=== PATIENT | female | born 1960 | race Asian ===

== ENCOUNTER → 2019-04-06 10:08 | Outpatient (CLI) | payer MEDICARE, BC, SELFPAY ==
--- NOTE | 2019-04-06 10:13 | DI.MG.S_ITS ---
BILATERAL DIGITAL SCREENING MAMMOGRAM 3D/2D WITH CAD: 04/06/2019 CLINICAL: Routine screening. Comparison is made to exams dated: 10/03/2017 mammogram - [facility] and 08/29/2013 mammogram - [facility]. The tissue of both breasts is heterogeneously dense. This may lower the sensitivity of mammography. Current study was also evaluated with a Computer Aided Detection (CAD) system. No significant masses, calcifications, or other findings are seen in either breast. There has been no significant interval change. IMPRESSION: NEGATIVE There is no mammographic evidence of malignancy. A 1 year screening mammogram is recommended. This exam was interpreted at Station ID: [id number]. NOTE: For mammograms, a report in lay terms will be sent to the patient. Approximately 15% of breast malignancies will not be visualized mammographically. In the management of a palpable breast mass, a negative mammogram must not discourage biopsy of a clinically suspicious lesion. Electronically Signed By: Donovan arshad/lucille:04/08/2019 07:37:22 letter sent: Normal Exam ACR BI-RADS Category 1: Negative [id number]
== END ==
PROVIDERS: PCP Hospitalist; Visit Provider Hospitalist
DX: Z12.31 Encounter for screening mammogram for malignant neoplasm of breast (principal)
CPT/HCPCS: 77063; 77067

== ENCOUNTER → 2020-01-08 08:56 | Outpatient (CLI) | payer MEDICARE, BC, SELFPAY ==
[2020-01-08 09:33] LABS: Add Manual Diff / Slide Review NO; Basophils Absolute Auto 100 /uL (0-100); Basophils Percent Auto 1.3 % (0-2); Eosinophils Absolute Auto 300 /uL (0-450); Eosinophils Percent Auto 4.3 % (2-4); Lymphocytes Absolute Auto 1800 /uL (1100-4500); Lymphocytes Percent Auto 28.7 % (25-40); Mean Corpuscular HGB Conc 33.4 % (30-36); Mean Corpuscular Hemoglobin 30.1 PG (26-34); Mean Corpuscular Volume 90.1 fL (80-100); Monocytes Absolute Auto 400 /uL (0-900); Monocytes Percent Auto 6.8 % (3-14); Neutrophils Absolute Auto 3600 /uL (1500-7000); Neutrophils Percent Auto 58.9 % (50-75); Platelet Count 125 X10^3/uL (150-400); Red Blood Cell Count 4.66 X10^6/uL (4.0-5.2); Red Cell Distribution Width 13.2 % (11.6-14.8); White Blood Cell Count 6.1 X10^3/uL (4.5-11.0)
[2020-01-08 09:54] LABS: Albumin 4.4 g/dL (3.5-5.0); Albumin Globulin Ratio 1.8 (1.0-2.8); Alkaline Phosphatase 76 U/L (38-126); Aspartate Aminotransferase 29 IU/L (14-36); BUN Creatinine Ratio 11.4 (6-22); Bilirubin Total 0.6 mg/dL (0.2-1.3); Blood Urea Nitrogen 14 mg/dL (7-17); Calcium 9.5 mg/dL (8.4-10.2); Carbon Dioxide 26 mmol/L (22-32); Chloride 105 mmol/L (98-107); Cholesterol 122 mg/dL (140-199); Estimated Glomerular Filt Rate 44.4 mL/min (>60); Globulin 2.4 g/dL (1.7-4.1); Glucose 98 mg/dL (80-110); HDL Cholesterol 49 mg/dL (40-60); HEMOLYSIS < 15 (0-50); LDL Cholesterol Calculated 47 mg/dL (<100); Potassium 4.3 mmol/L (3.4-5.1); Sodium 139 mmol/L (137-145); Total Protein 6.8 g/dL (6.3-8.2); Triglycerides 132 mg/dL (35-150)
[2020-01-08 10:07] LABS: Vitamin D 25 Hydroxy (D3) 120 ng/mL (30.0-100.0)
[2020-01-08 10:10] LABS: Free T3, Triiodothyronine Free 5.35 pg/mL (2.77-5.27); Free T4, Direct Thyroxine 1.19 ng/dL (0.78-2.19)
[2020-01-08 10:23] LABS: Thyroid Stimulating Hormone 0.051 uIU/mL (0.47-4.68)
[2020-01-08 10:44] LABS: Vitamin B12 909 pg/mL (239-931)
[2020-01-08 14:24] LABS: Alanine Aminotransferase 16 IU/L (<35)
== END ==
PROVIDERS: PCP Family Medicine; Referring Provider Family Medicine; Visit Provider Family Medicine
DX: E55.9 Vitamin D deficiency, unspecified (principal); G62.9 Polyneuropathy, unspecified; Z13.29 Encounter for screening for other suspected endocrine disorder; Z85.43 Personal history of malignant neoplasm of ovary; Z85.79 Personal history of other malignant neoplasms of lymphoid, hematopoietic and related tissues
CPT/HCPCS: 36415; 80053; 80061; 82306; 82607; 84439; 84443; 84481; 85025

== ENCOUNTER → 2020-01-10 08:02 | Outpatient (CLI) | payer MEDICARE, BC, SELFPAY ==
--- NOTE | 2020-01-10 08:04 | DI.CT.S_ITS ---
PROCEDURE: CT SOFT TISSUE NECK W CON INDICATIONS: h/o lymphoma and h/o C5,[address] at [facility] TECHNIQUE: After the administration of intravenous contrast, 3.0 mm axial sections acquired from the sella to the aortic arch. Additional oblique axial 3.0 mm sections acquired through the pharynx. 3 mm thick coronal and sagittal reformats were generated. For radiation dose reduction, the following was used: automated exposure control. COMPARISON: [facility], CT, CT CHEST ABD PEL W CON, 01/10/2020, 8:49. (No prior outside studies are available for review at the time of this dictation). FINDINGS: Image quality: There is artifact associated with the metallic hardware. Lymph nodes: No enlarged lymph nodes seen throughout the neck. Vessels: Visualized vasculature appears patent. Neck spaces: The oropharynx, nasopharynx, and pharynx demonstrate no mucosal lesions. The vocal cords, false vocal cords, pyriform sinuses, epiglottis, vallecula, and tongue base all appear normal. Extramucosal spaces appear unremarkable. Glands: The parotid and submandibular glands appear normal. Thyroid gland demonstrates no significant abnormality. Miscellaneous: Visualized brain and orbits appear normal. Lung apices appear clear. Superficial soft tissues appear normal. Bones: No suspicious bony lesions. Visualized sinuses and mastoids appear unremarkable. Relatively prominent cervical spine degenerative changes are seen, which are worst inferiorly. IMPRESSION: No enlarged lymph nodes are seen. Dictated by: Mason Pineda M.D. on 01/10/2020 at 15:18 Approved by: Mason Pineda M.D. on 01/10/2020 at 15:20
--- NOTE | 2020-01-10 08:04 | DI.CT.S_ITS ---
PROCEDURE: CT CHEST ABD PEL W CON INDICATIONS: history of lymphoma now with pain in multiple areas TECHNIQUE: After the administration of oral and intravenous contrast, 5 mm thick sections acquired from the lung apices to the symphysis. 5 mm coronal and sagittal reformats were performed, with additional 7 mm coronal MIP reformats through the lungs. For radiation dose reduction, the following was used: automated exposure control, adjustment of mA and/or kV according to patient size. COMPARISON: [facility], CT, CT SOFT TISSUE NECK W CON, 01/10/2020, 8:49. FINDINGS: Image quality: Excellent. CHEST: Lungs and pleura: No acute airspace opacities. No pleural effusions or pneumothorax. Central and peripheral airways appear patent and normal in caliber. Mediastinum: Heart size is normal. No pericardial effusion. No mediastinal or hilar adenopathy by size criteria. Thoracic aorta and central pulmonary arteries are normal in size. Esophagus is normal in caliber. No hiatal hernia. Chest wall: No axillary or supraclavicular adenopathy by size criteria. Thyroid gland is unremarkable. ABDOMEN: Solid organs: Liver is normal in size and enhancement. Gallbladder is unremarkable . Biliary system is non dilated. Pancreas enhances normally. Spleen is normal in size and enhancement. No adrenal nodules. Kidneys demonstrate normal size and enhancement, without hydronephrosis. Peritoneum and bowel: Bowel loops demonstrate normal wall thickness and caliber. No free fluid or air. Nodes and vessels: No retroperitoneal or mesenteric adenopathy by size criteria. Aorta and inferior vena cava are normal in size. Miscellaneous: No ventral hernias. PELVIS: Genitourinary: Bladder wall thickness is normal. Miscellaneous: No inguinal hernias or adenopathy. Remote hysterectomy. Bones: No suspicious bony lesions. No vertebral body compression fractures. IMPRESSION: No evidence of lymphadenopathy in the chest, abdomen, and pelvis. No evidence of acute process in the chest, abdomen, and pelvis. Dictated by: Alcon Galeana M.D. on 01/10/2020 at 16:29 Approved by: Alcon Galeana M.D. on 01/10/2020 at 16:33
== END ==
PROVIDERS: PCP Family Medicine; Referring Provider Internal Medicine; Visit Provider Internal Medicine
DX: Z08 Encounter for follow-up examination after completed treatment for malignant neoplasm (principal); Z85.72 Personal history of non-Hodgkin lymphomas; Z85.43 Personal history of malignant neoplasm of ovary; R52 Pain, unspecified
CPT/HCPCS: 70491; 71260; 74177; Q9967

== ENCOUNTER → 2020-01-21 14:00 | Oncology outpatient (ONC) | payer MEDICARE, BC, SELFPAY ==
[2020-01-07 13:59] VITALS: BP 128/75; PULSE 65; RESP 18; TEMP 36.7; O2SAT 100
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
[2020-01-21 14:13] VITALS: BP 124/73; PULSE 58; RESP 16; TEMP 36.9; O2SAT 99
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
== END ==
PROVIDERS: PCP Family Medicine; Referring Provider Family Medicine; Visit Provider Internal Medicine
DX: Z08 Encounter for follow-up examination after completed treatment for malignant neoplasm (principal); Z85.72 Personal history of non-Hodgkin lymphomas; D69.6 Thrombocytopenia, unspecified; G62.0 Drug-induced polyneuropathy; T45.1X5S Adverse effect of antineoplastic and immunosuppressive drugs, sequela; M47.812 Spondylosis without myelopathy or radiculopathy, cervical region; R94.6 Abnormal results of thyroid function studies
CPT/HCPCS: 99204; 99214

== ENCOUNTER → 2020-03-03 11:33 | Outpatient (CLI) | payer MEDICARE, BC, SELFPAY ==
[2020-03-03 13:01] LABS: Free T3, Triiodothyronine Free 4.15 pg/mL (2.77-5.27); Free T4, Direct Thyroxine 1.08 ng/dL (0.78-2.19)
[2020-03-03 13:15] LABS: Thyroid Stimulating Hormone 1.14 uIU/mL (0.47-4.68)
[2020-03-03 18:23] LABS: Vitamin D 25 Hydroxy (D3) 99.3 ng/mL (30.0-100.0)
== END ==
PROVIDERS: PCP Family Medicine; Referring Provider Nurse Practitioner Family; Visit Provider Nurse Practitioner Family
DX: E05.90 Thyrotoxicosis, unspecified without thyrotoxic crisis or storm (principal); E55.9 Vitamin D deficiency, unspecified; T45.2X1A Poisoning by vitamins, accidental (unintentional), initial encounter
CPT/HCPCS: 36415; 82306; 84439; 84443; 84445; 84481

== ENCOUNTER → 2021-01-01 11:28 | Outpatient (CLI) | payer MEDICARE, BC, SELFPAY ==
--- NOTE | 2021-01-01 | DI.RAD.S_ITS ---
PROCEDURE: XR LUMBAR SPINE 2-3V INDICATIONS: Segmental and somatic dysfunction of lumbar region TECHNIQUE: 3 views of the lumbar spine were acquired. COMPARISON: None. FINDINGS: Bones: 5 [id number] vertebrae are present. There is normal bony alignment. No vertebral body compression fractures. No suspicious bony lesions. Degenerative disc disease is minimal except at L5-S1 where it is moderately severe. Facet osteoarthritis also appears moderately severe at L5-S1 and to a lesser degree at L4-L5. Soft tissues: Overlying bowel gas pattern is normal. No suspicious soft tissue calcifications. IMPRESSION: No trauma found. Moderately severe degenerative disc disease and facet osteoarthritis at L5-S1 but elsewhere the study appears only minimally degenerated. Dictated by: Brady Adams M.D. on 01/01/2021 at 13:59 Approved by: Brady Adams M.D. on 01/01/2021 at 14:00
--- NOTE | 2021-01-01 | DI.RAD.S_ITS ---
PROCEDURE: XR CERVICAL SPINE 2V OR 3V INDICATIONS: Segmental and somatic dysfunction of lumbar region TECHNIQUE: 2 view(s) of the cervical spine were acquired. COMPARISON: None. FINDINGS: Bones: No fractures or dislocations to the T1 level. The lateral masses of C1 appear intact on the odontoid view. No suspicious bony lesions. Note is made of degenerative disc disease that is moderate in severity at C3-4 through C 6-7. No subluxation is associated. No trauma found. Soft tissues: No prevertebral soft tissue swelling. IMPRESSION: The C2-3 level of the cervical spine shows no degenerative change but from C3-4 inferiorly through C6-C7 there is a moderate degree of degenerative disc disease and likely facet osteoarthritis to the degree that spinal and foraminal stenosis through the middle and lower thirds of the cervical spine likely is present. Dictated by: Brady Adams M.D. on 01/01/2021 at 14:00 Approved by: Brady Adams M.D. on 01/01/2021 at 14:03
--- NOTE | 2021-01-01 | DI.RAD.S_ITS ---
PROCEDURE: XR THORACIC SPINE 2V INDICATIONS: Segmental and somatic dysfunction of lumbar region TECHNIQUE: 2 views of the thoracic spine were acquired. COMPARISON: None. FINDINGS: Bones: No fractures or dislocations. No suspicious bony lesions. 12 pairs of ribs are noted, and appear intact where visualized. Soft tissues: No paravertebral stripe thickening. IMPRESSION: Normal for age, source of current some attic dysfunction symptoms is not seen. Dictated by: Brady Adams M.D. on 01/01/2021 at 13:58 Approved by: Brady Adams M.D. on 01/01/2021 at 13:59
== END ==
PROVIDERS: PCP Family Medicine; Referring Provider Chiropractor; Visit Provider Chiropractor
DX: M99.01 Segmental and somatic dysfunction of cervical region (principal); M99.02 Segmental and somatic dysfunction of thoracic region; M99.03 Segmental and somatic dysfunction of lumbar region; M99.04 Segmental and somatic dysfunction of sacral region; M50.31 Other cervical disc degeneration, high cervical region; M51.37 Other intervertebral disc degeneration, lumbosacral region; M47.817 Spondylosis without myelopathy or radiculopathy, lumbosacral region
CPT/HCPCS: 72050; 72072; 72100

== ENCOUNTER → 2021-06-03 14:56 | Outpatient (CLI) | payer MEDICARE, BC, SELFPAY ==
--- NOTE | 2021-06-03 14:58 | DI.RAD.S_ITS ---
PROCEDURE: XR FINGER LT MIN 2V INDICATIONS: finger caught in door TECHNIQUE: AP hand, 2 views of the 2nd finger(s) acquired. COMPARISON: None. FINDINGS: Bones: No fractures or dislocations. No suspicious bony lesions. Osteoarthritic changes are noted in 2nd CMC joint and 2nd PIP joint. No definite bony erosion. Nonspecific subcortical cyst formation involving ulnar aspect of 2nd proximal phalangeal head is seen. Moderate 1st CMC joint osteoarthritis is also seen. Soft tissues: No suspicious soft tissue calcifications. IMPRESSION: No gross acute 2nd finger fracture or dislocation. Mild 2nd digit osteoarthritis with nonspecific subcortical cyst formation involving ulnar aspect of 2nd proximal phalangeal head. Dictated by: Karan Cabrera M.D. on 06/03/2021 at 15:21 Approved by: Karan Cabrera M.D. on 06/03/2021 at 15:22
== END ==
PROVIDERS: PCP Family Medicine; Referring Provider Registered Nurse Diabetes Educator; Visit Provider Registered Nurse Diabetes Educator
DX: M19.042 Primary osteoarthritis, left hand (principal); M79.89 Other specified soft tissue disorders
CPT/HCPCS: 73140

== ENCOUNTER 2021-11-10 17:52 | Emergency (ER) | payer MEDICARE, BC, SELFPAY ==
[2021-11-10 18:01] VITALS: BP 143/77; PULSE 60; RESP 14; TEMP 36.6; O2SAT 99; BMI 28.3
--- NOTE | 2021-11-10 18:17 | ED.FALL ---
HPI - Fall General Chief Complaint: Fall Stated Complaint: rt arm, rt side of face injury s/p fall Time Seen by Provider: 11/10/21 18:13 Source: patient Mode of arrival: Ambulatory History of Present Illness HPI Narrative: The patient had a fall at her home about 2 hours prior to arrival here. She was stepping out of her house with 2 dogs on [address]. The 2 dogs saw a squirrel and bolted forward pulling her from the deck, she landed on the pavement of her driveway, striking her right face and right upper extremity she has a right facial abrasion, right facial pain, and diplopia. She has nausea but no emesis. She did not experience LOC. she has no bleeding from the nose, mouth or ears. She denies neck pain. She has no back pain. She has no chest pain, cough or dyspnea. She has no abdominal discomfort. She has an abrasion along her right lateral elbow, but has full range of motion of the right shoulder, elbow and right wrist. She has contusion/abrasion at the base of right thumb. She has significant discomfort, but no obvious deformity or restriction of range of motion. There are no open wounds. She also has a small abrasion on left hand, but no discomfort. She has no hip or lower extremity injuries. She is oriented. She is ambulatory without difficulty. Her tetanus was updated after arrival. She denies recent illness. She has no fever chills. She has no confusion, speech changes, or focal numbness or weakness. Related Data Home Medications Medication Instructions Recorded Confirmed vit C 250 mg-vit E 90 mg-zinc 40 1 tab PO DAILY cap 03/12/19 11/10/21 mg-copper 1 [id number] capsule (PreserVision AREDS-2) vitamin B complex (B 1 tab PO DAILY 03/12/19 11/10/21 Complex-Vitamin B12) Previous Rx's Medication Instructions Recorded amlodipine 5 mg tablet See Rx Instructions .ROUTE 06/23/21 .COMPLEX #90 tab gabapentin 300 mg capsule See Rx Instructions .ROUTE 06/23/21 .COMPLEX #210 cap sertraline 100 mg tablet See Rx Instructions .ROUTE 06/23/21 .COMPLEX #180 tab metoclopramide HCl 10 mg tablet See Rx Instructions .ROUTE 06/29/21 .COMPLEX #360 tab esomeprazole magnesium 40 mg See Rx Instructions .ROUTE 07/20/21 capsule,delayed release .COMPLEX #180 cap montelukast 10 mg tablet See Rx Instructions .ROUTE 08/02/21 .COMPLEX #90 tab simvastatin 20 mg tablet See Rx Instructions .ROUTE 08/02/21 .COMPLEX #90 tab ondansetron 4 mg disintegrating 4 mg PO Q4H PRN #14 tab 11/10/21 tablet Allergies Allergy/AdvReac Type Severity Reaction Status Date / Time vancomycin Allergy Severe Anaphylaxis Verified 11/10/21 18:06 Penicillins Allergy rash/breathing Verified 06/23/21 09:15 issues Review of Systems Review of Systems ROS Unobtainable: All systems reviewed & are unremarkable except as noted in HPI and below Patient History Medical History Acute pain of left shoulder due to trauma Barretts esophagus History of lymphoma History of ovarian cancer in adulthood Hyperthyroidism determined by thyroid function test Injury of left index finger Lymphoma Peripheral neuropathy Plantar fasciitis of left foot Upper extremity somatic dysfunction Vitamin D deficiency Vitamin D toxicity Surgical History S/P hysterectomy (~1998) S/P rotator cuff repair Family History Sister Cancer CAD (coronary artery disease) Social History Smoking Status: Never smoker Smoking Status: Never smoker alcohol intake frequency: 0-2 drinks per day Substance Use Type: does not use Exam Initial Vital Signs Initial Vital Signs: Vital Signs Temperature 97.9 F 11/10/21 18:01 Pulse Rate 60 11/10/21 18:01 Respiratory Rate 14 11/10/21 18:01 Blood Pressure 143/77 H 11/10/21 18:01 Pulse Oximetry 99 11/10/21 18:01 Const General: cooperative and comfortable Orientation: Orientation (Normal) [facility] Head: other (Small right facial abrasions. No active bleeding or foreign body.) Ears: TM's normal bilaterally Nose: external nose normal and nares normal Mouth: oral mucosae normal and lip normal Teeth and gingiva: dentition normal Throat: posterior oropharynx normal Eyes General: Yes appearance normal, both eyes and all related structures Periorbital: periorbital findings normal Pupils: PERRL EOM: EOM intact bilaterally Neck Neck: full ROM and No tender Chest Chest: normal inspection of the chest (No palpable tenderness.) Resp Auscultation: clear to auscultation bilaterally Cardio Rate: regular rate Rhythm: regular rhythm Heart Sounds: S1 normal, S2 normal, no click and no murmurs GI Inspection: normal to inspection Palpation: soft and No tender Auscultation: normal bowel sounds Back/Spine/Pelvis Back: normal to inspection and No back tenderness Skin Other: Right facial, right forearm and left hand abrasions. Multiple small contusions. Neuro General: patient alert, patient awake, patient oriented x3 and no focal motor deficits Extrem Other: Right arm shows full range of motion of the right shoulder, right elbow and right wrist. There is an abrasion over the right lateral elbow. There are no deep injuries, no foreign bodies. Right wrist shows normal range of motion, no snuffbox tenderness. There is contusion and tenderness to the right thenar eminence. There are no palpable abnormalities in the digits, with normal range of motion the digits. 1 cm abrasion to the left dorsal hand. Full range of motion left hand. Tends in both upper extremities are intact. Both hands are neurovascular intact. Lower extremities show no hip, knee or ankle tenderness. There is no injuries to lower extremities. Psych Mental Status: mental status grossly normal Course Course Course Narrative: The radiology studies were discussed with the patient. Right arm injuries were dressed by the patient's nurse prior to discharge. Orders Ordered: Discontinued Medications Acetaminophen (Acetaminophen 325 Mg Tablet) 650 mg PO NOW ONE Stop: 11/10/21 19:36 Last Admin: 11/10/21 19:40 Dose: 650 mg Documented by: DEX Meclizine HCl (Meclizine Hcl 12.5 Mg Tablet) 50 mg PO NOW ONE Stop: 11/10/21 18:26 Last Admin: 11/10/21 18:48 Dose: 50 mg Documented by: DEX Ondansetron HCl (Ondansetron 4 Mg Odt) 4 mg SL NOW ONE Stop: 11/10/21 18:26 Last Admin: 11/10/21 18:44 Dose: 4 mg Documented by: DEX Vital Signs Vital signs: Vital Signs - 8 hr 11/10/21 18:01 11/10/21 19:29 Temperature 97.9 F Pulse Rate 60 56 L Respiratory Rate 14 16 Blood Pressure 143/77 H 127/77 Pulse Oximetry 99 99 MDM - Fall Imaging Data Right hand: Radiologist's Impression: 1. No acute abnormality. 2. Degenerative changes consistent with osteoarthritis. 3. Marginal erosions in multiple joints suggestive of inflammatory arthropathy.? ? Right elbow x-ray: Radiologist's Impression: No acute bony injury CT scan - head: Radiologist's Impression: No intracranial hemorrhage or mass effect. Chronic left sphenoid mucosal sinus disease ? Discharge Plan Departure Patient Disposition: Home Clinical Impression: Head injury, acute, without loss of consciousness, Abrasion of forearm, right, Contusion of hand Instructions: Concussion Activity Restrictions/Additional Instructions: The double vision, the nausea,... This is consistent with a mild concussion. Your head scan is okay Tylenol or Advil as needed for pain. Zofran as needed for nausea. Rest at home. Avoid TVs, computer screens, that kind of neurologic feedback. I suggested reading books, and light exercise. For your right arm, Tylenol every 4 hours as needed. Apply ice packs to your right hand frequently. Symptoms should resolve within about a month. Follow-up with your doctor if symptoms persist. Return here as needed. Prescriptions: New ondansetron 4 mg tablet,disintegrating 4 mg PO Q4H PRN (Reason: nausea and vomiting) Qty: 14 0RF No Action metoclopramide HCl 10 mg tablet See Rx Instructions .ROUTE .COMPLEX Qty: 360 0RF Dose Instruction: take 1 tablet by mouth twice a day Rx Instructions: take 1 tablet by mouth twice a day esomeprazole magnesium 40 mg capsule,delayed release(DR/EC) See Rx Instructions .ROUTE .COMPLEX Qty: 180 0RF Dose Instruction: take 1 capsule by mouth twice a day Rx Instructions: take 1 capsule by mouth twice a day simvastatin 20 mg tablet See Rx Instructions .ROUTE .COMPLEX Qty: 90 3RF Dose Instruction: take 1 tablet by mouth at bedtime Rx Instructions: take 1 tablet by mouth at bedtime montelukast 10 mg tablet See Rx Instructions .ROUTE .COMPLEX Qty: 90 3RF Dose Instruction: take 1 tablet by mouth at bedtime Rx Instructions: take 1 tablet by mouth at bedtime gabapentin 300 mg capsule See Rx Instructions .ROUTE .COMPLEX Qty: 210 3RF Dose Instruction: Take 2 tabs in the morning, 2 tabs in the afternoon, and 3 tabs at night. Rx Instructions: Take 2 tabs in the morning, 2 tabs in the afternoon, and 3 tabs at night. sertraline 100 mg tablet See Rx Instructions .ROUTE .COMPLEX Qty: 180 3RF Dose Instruction: take 1 tablet by mouth twice a day Rx Instructions: take 1 tablet by mouth twice a day amlodipine 5 mg tablet See Rx Instructions .ROUTE .COMPLEX Qty: 90 3RF Dose Instruction: take 1 tablet by mouth once daily Rx Instructions: take 1 tablet by mouth once daily PreserVision AREDS-2 [id number] li-lstp-gb-mg capsule 1 tab PO DAILY 0RF vitamin B complex [B Complex-Vitamin B12] tablet 1 tab PO DAILY 0RF Referrals: Tigre Pettit DO [Primary Care Provider] -
--- NOTE | 2021-11-10 18:18 | DI.RAD.S_ITS ---
PROCEDURE: XR ELBOW RT MIN 3V INDICATIONS: trip and fall TECHNIQUE: 3 views of the elbow were acquired. COMPARISON: None. FINDINGS: Bones: No fractures or dislocations. No suspicious bony lesions. Soft tissues: No elbow joint effusion. No suspicious soft tissue calcifications. IMPRESSION: No acute abnormality of the right elbow. Dictated by: Jaiden Linn M.D. on 11/10/2021 at 19:17 Approved by: Jaiden Linn M.D. on 11/10/2021 at 19:18
--- NOTE | 2021-11-10 18:26 | DI.CT.S_ITS ---
PROCEDURE: CT HEAD/BRAIN WO CON INDICATIONS: Head injury. Diplopia and dizziness. TECHNIQUE: Noncontrast 4.5 mm thick angled axial sections acquired from the foramen magnum to the vertex, with coronal and sagittal reformats. For radiation dose reduction, the following was used: automated exposure control, adjustment of mA and/or kV according to patient size. COMPARISON: None. FINDINGS: Image quality: Excellent. CSF spaces: Basal cisterns are patent. No extra-axial fluid collections. Ventricles are normal in size and shape. Brain: No midline shift. No intracranial masses or hemorrhage. Green-white matter interface is normal. Skull and face: Calvarium and visualized facial bones are intact, without suspicious lesions. Sinuses: Mucosal thickening and debris in the left sphenoid sinus associated with sphenoid wall thickening IMPRESSION: No intracranial hemorrhage or mass effect. Chronic left sphenoid mucosal sinus disease Approved by: Jason Kwon M.D. on 11/10/2021 at 18:14
--- NOTE | 2021-11-10 18:26 | DI.RAD.S_ITS ---
PROCEDURE: XR HAND RT MIN 3V INDICATIONS: Fall TECHNIQUE: 3 views of the hand(s) acquired. COMPARISON: None. FINDINGS: Bones: No fractures or dislocations. Carpal bones are normally aligned. No suspicious bony lesions. There are marginal erosions in the 4th proximal phalanx distally at the PIP joint, the distal metacarpal, and the 5th metacarpal head. The 1st carpometacarpal joint has degenerative changes consistent with osteoarthritis. Soft tissues: No suspicious soft tissue calcifications. IMPRESSION: 1. No acute abnormality. 2. Degenerative changes consistent with osteoarthritis. 3. Marginal erosions in multiple joints suggestive of inflammatory arthropathy. Dictated by: Jaiden Linn M.D. on 11/10/2021 at 19:18 Approved by: Jaiden Linn M.D. on 11/10/2021 at 19:20
[2021-11-10] MEDS: ONDANSETRON 4 MG ODT SL (18:44)
[2021-11-10] MEDS: MECLIZINE HCL 12.5 MG TABLET 50 MG PO (18:48)
--- NOTE | 2021-11-10 19:26 | PC.NURSE ---
Pt reports no longer being dizzy. Pt asks for something for her headache. Notified MD Luis.
[2021-11-10 19:29] VITALS: BP 127/77; PULSE 56; RESP 16; O2SAT 99
[2021-11-10] MEDS: ACETAMINOPHEN 325 MG TABLET 650 MG PO (19:40)
== END 2021-11-10 20:23 | disposition home or self-care (01) ==
PROVIDERS: Emergency Provider Emergency Medicine; PCP Family Medicine
DX: S09.90XA Unspecified injury of head, initial encounter (principal); S50.311A Abrasion of right elbow, initial encounter; S60.221A Contusion of right hand, initial encounter; W17.89XA Other fall from one level to another, initial encounter
CPT/HCPCS: 70450; 73080; 73130; 99283; 99284

== ENCOUNTER → 2022-04-15 13:45 | Outpatient (CLI) | payer MEDICARE, BC, SELFPAY ==
[2022-04-15 14:32] LABS: Add Manual Diff / Slide Review NO; Basophils Absolute Auto 100 /uL (0-100); Basophils Percent Auto 1.3 % (0-2); Eosinophils Absolute Auto 200 /uL (0-450); Eosinophils Percent Auto 2.7 % (2-4); Hematocrit 41.9 % (36-46); Lymphocytes Absolute Auto 1800 /uL (1100-4500); Mean Corpuscular HGB Conc 33.5 % (30-36); Mean Corpuscular Hemoglobin 29.6 PG (26-34); Mean Corpuscular Volume 88.5 fL (80-100); Monocytes Absolute Auto 300 /uL (0-900); Monocytes Percent Auto 6.2 % (3-14); Neutrophils Absolute Auto 3200 /uL (1500-7000); Neutrophils Percent Auto 57.8 % (50-75); Platelet Count 144 X10^3/uL (150-400); Red Blood Cell Count 4.74 X10^6/uL (4.0-5.2); Red Cell Distribution Width 13.2 % (11.6-14.8); White Blood Cell Count 5.6 X10^3/uL (4.5-11.0)
[2022-04-15 14:34] LABS: Alanine Aminotransferase 15 IU/L (<35); Albumin Globulin Ratio 1.5 (1.0-2.8); Alkaline Phosphatase 75 U/L (38-126); Aspartate Aminotransferase 25 IU/L (14-36); BUN Creatinine Ratio 12.5 (6-22); Bilirubin Total 0.5 mg/dL (0.2-1.3); Blood Urea Nitrogen 16 mg/dL (7-17); Calcium 8.6 mg/dL (8.4-10.2); Carbon Dioxide 24 mmol/L (22-32); Chloride 106 mmol/L (98-107); Cholesterol 190 mg/dL (140-199); Estimated Glomerular Filt Rate 47 mL/min (>60); Globulin 2.6 g/dL (1.7-4.1); Glucose 110 mg/dL (80-110); HDL Cholesterol 52 mg/dL (40-60); HEMOLYSIS < 15 (0-50); LDL Cholesterol Calculated 87 mg/dL (<100); Potassium 4.1 mmol/L (3.4-5.1); Sodium 139 mmol/L (137-145); Total Protein 6.6 g/dL (6.3-8.2); Triglycerides 256 mg/dL (35-150)
[2022-04-15 14:54] LABS: Hemoglobin A1C% w Est Avg Glu 5.1 % (4.0-6.0)
[2022-04-15 14:54] LABS: Free T3, Triiodothyronine Free 5.38 pg/mL (2.77-5.27)
[2022-04-15 15:08] LABS: Thyroid Stimulating Hormone 1.13 uIU/mL (0.47-4.68)
[2022-04-15 15:32] LABS: Vitamin D 25 Hydroxy (D3) 68.7 ng/mL (30.0-100.0)
== END ==
PROVIDERS: PCP Family Medicine; Referring Provider Family Medicine; Visit Provider Family Medicine
DX: Z00.00 Encounter for general adult medical examination without abnormal findings (principal); T45.2X1A Poisoning by vitamins, accidental (unintentional), initial encounter; E55.9 Vitamin D deficiency, unspecified; G90.3 Multi-system degeneration of the autonomic nervous system; I95.1 Orthostatic hypotension; Z85.79 Personal history of other malignant neoplasms of lymphoid, hematopoietic and related tissues
CPT/HCPCS: 36415; 80053; 80061; 82306; 83036; 84439; 84443; 84481; 85025

== ENCOUNTER → 2022-05-04 13:56 | Outpatient (CLI) | payer MEDICARE, BC, SELFPAY ==
--- NOTE | 2022-05-04 13:58 | DI.MG.S_ITS ---
BILATERAL DIGITAL SCREENING MAMMOGRAM 3D/2D WITH CAD: 05/04/2022 CLINICAL: Routine screening. Comparison is made to exams dated: 04/06/2019 mammogram, 10/03/2017 mammogram - [facility], and 08/29/2013 mammogram - [facility]. Both breasts are heterogeneously dense, which may obscure small masses (category c / 51-75% glandular tissue). Current study was also evaluated with a Computer Aided Detection (CAD) system. No significant masses, calcifications, or other findings are seen in either breast. There has been no significant interval change. IMPRESSION: NEGATIVE There is no mammographic evidence of malignancy. A 1 year screening mammogram is recommended. Based on the Tyrer Cuzick model (a risk assessment model) the patient's lifetime risk is 8.6% and her 10 year risk is 3.9%. According to the ACR, ACS, and NCCN guidelines, an annual breast MRI exam along with mammogram is recommended if the patient's lifetime risk is 20% or greater. This exam was interpreted at Station ID: [id number]. NOTE: For mammograms, a report in lay terms will be sent to the patient. Approximately 15% of breast malignancies will not be visualized mammographically. In the management of a palpable breast mass, a negative mammogram must not discourage biopsy of a clinically suspicious lesion. Electronically Signed By: Americo willett/lucille:05/04/2022 14:53:09 letter sent: Normal Exam ACR BI-RADS Category 1: Negative 3341F
== END ==
PROVIDERS: PCP Family Medicine; Referring Provider Family Medicine; Visit Provider Family Medicine
DX: Z12.31 Encounter for screening mammogram for malignant neoplasm of breast (principal)
CPT/HCPCS: 77063; 77067

== ENCOUNTER 2022-10-28 12:04 | Emergency (ER) | payer MEDICARE, BC, SELFPAY ==
[2022-10-28 12:19] VITALS: BP 125/55; PULSE 67; RESP 18; TEMP 36.7; O2SAT 97; BMI 29.1
--- NOTE | 2022-10-28 13:17 | ED_ITS ---
HPI - Allergic Reaction <Tammy Wilkes, [facility] - Last Filed: 10/28/22 15:21> General Chief complaint: Allergic Reaction Stated complaint: rash/on two antibiotics/benedryl not helping Time Seen by Provider: 10/28/22 12:50 Source: patient Mode of arrival: Ambulatory History of Present Illness HPI narrative: This is a 61 year female presents emergency department with a rash all over her body, states it is pruritic, states that she was prescribed clindamycin and erythromycin and she developed this rash right after taking it. She endorses a scratchy feeling throat but denies any shortness of breath, wheezing, difficulty breathing. She states that she has a very itchy rash all over her body especially in between her legs. She states she has history of allergy to vancomycin, azithromycin, penicillin but does not know her reaction to penicillin, and clindamycin is now listed on her allergies. She states she was told she was allergic to penicillin as a child. She denies taking any further doses but had 2 of her doses yesterday. She was prescribed these antibiotics for a left dental infection that is scheduled for extraction on November 14. She denies fever, chills, difficulty breathing. Related Data Home Medications Medication Instructions Recorded Confirmed vit C 250 mg-vit E 90 mg-zinc 40 1 tab PO DAILY 03/12/19 04/28/22 mg-copper 1 [id number] capsule (PreserVision AREDS-2) vitamin B complex (B 1 tab PO DAILY 03/12/19 04/28/22 Complex-Vitamin B12 tablet) dexlansoprazole 30 mg 30 mg PO DAILY 04/28/22 04/28/22 capsule,biphase delayed release Previous Rx's Medication Instructions Recorded gabapentin 300 mg capsule See Rx Instructions .Route 11/15/21 .COMPLEX #210 caps simvastatin 40 mg tablet 40 mg PO BEDTIME #90 tabs 04/28/[address] #1 ea 05/05/22 sertraline 100 mg tablet See Rx Instructions .Route 06/17/22 .COMPLEX #180 tabs amlodipine 5 mg tablet See Rx Instructions .Route 06/21/22 .COMPLEX #90 tabs montelukast 10 mg tablet See Rx Instructions .Route 10/25/22 .COMPLEX #90 tabs cefdinir 300 mg capsule 300 mg PO BID 14 days #28 caps 10/28/22 cetirizine 10 mg tablet 10 mg PO DAILY PRN allergy 10/28/22 symptoms #20 tabs famotidine 20 mg tablet (Pepcid) 20 mg PO DAILY #20 tabs 10/28/22 hydroxyzine HCl 25 mg tablet 25 mg PO BID PRN itching #30 tabs 10/28/22 methylprednisolone 4 mg tablets in See Rx Instructions PO .COMPLEX 10/28/22 a dose pack (Medrol (Alexis)) #21 ea metronidazole 500 mg tablet 500 mg PO BID 14 days #28 tabs 10/28/22 Allergies Allergy/AdvReac Type Severity Reaction Status Date / Time vancomycin Allergy Severe Anaphylaxis Verified 04/28/22 14:56 azithromycin Allergy Rash Verified 10/28/22 12:19 clindamycin Allergy Rash Verified 10/28/22 12:18 Penicillins Allergy rash/breathing Verified 04/28/22 14:56 issues Review of Systems <ROMAINE Osborn - Last Filed: 10/28/22 15:21> Review of Systems ROS Unobtainable: All systems reviewed & are unremarkable except as noted in HPI and below Patient History <ROMAINE Osborn - Last Filed: 10/28/22 15:21> Medical History Acute pain of left shoulder due to trauma Barretts esophagus BPPV (benign paroxysmal positional vertigo) Brain fog Chronic kidney disease, stage 3a Chronic pain of right knee Concussion Cranial somatic dysfunction Fall (on) (from) unspecified stairs and steps, sequela Finger injury History of lymphoma History of ovarian cancer in adulthood Hyperlipidemia, mixed Hyperthyroidism determined by thyroid function test Injury of left index finger Lymphoma Nausea alone Peripheral neuropathy Plantar fasciitis of left foot Upper extremity somatic dysfunction Vitamin D deficiency Surgical History S/P hysterectomy (~1998) S/P rotator cuff repair Family History Sister Cancer CAD (coronary artery disease) Social History Smoking Status: Never smoker Smoking Status: Never smoker alcohol intake frequency: 0-2 drinks per day Substance Use Type: does not use Exam <ROMAINE Osborn - Last Filed: 10/28/22 15:21> Narrative Exam Narrative: Reviewed vitals signs and nursing notes. General: Pleasant, sitting upright, in no acute distress, well groomed, afebrile HEENT: symmetrical facial expressions, dry mucous membranes, neck is supple, no angioedema, mild cobblestoning to posterior pharynx, airway is widely patent CV: regular rate and rhythm, warm extremities Respiratory: normal work of breathing, without tachypnea or hypoxia. No wheezing, no stridor without tachypnea or hypoxia GI: abdomen soft, nondistended, without CVA tenderness bilaterally. MSK: moves all extremities, no weakness, normal tone, ambulatory without deficit Skin: brisk capillary refill, patient has a rash all over her body that is mildly erythematous, dry and sandpaper like, some hives on her Neuro: clear speech and normal cognition, A&O x3, GCS 15, no focal motor or sensation deficits Initial Vital Signs Initial Vital Signs: Vital Signs Temperature 98.1 F 10/28/22 12:19 Pulse Rate 67 10/28/22 12:19 Respiratory Rate 18 10/28/22 12:19 Blood Pressure 125/55 L 10/28/22 12:19 Pulse Oximetry 97 10/28/22 12:19 Oxygen Delivery Method Room Air 10/28/22 12:19 <Braxton Lassiter DO - Last Filed: 10/28/22 15:36> Initial Vital Signs Initial Vital Signs: Vital Signs Temperature 98.1 F 10/28/22 12:19 Pulse Rate 67 10/28/22 12:19 Respiratory Rate 18 10/28/22 12:19 Blood Pressure 125/55 L 10/28/22 12:19 Pulse Oximetry 97 10/28/22 12:19 Oxygen Delivery Method Room Air 10/28/22 12:19 Course <ROMAINE Osborn - Last Filed: 10/28/22 15:21> Orders Ordered: Discontinued Medications Cefdinir (Cefdinir 300 Mg Capsule) 300 mg PO NOW ONE Stop: 10/28/22 13:31 Last Admin: 10/28/22 13:39 Dose: 300 mg Documented By: KOKI Diphenhydramine HCl (Diphenhydramine 50 Mg/Ml Vial) 25 mg IV NOW ONE Stop: 10/28/22 13:10 Last Admin: 10/28/22 13:32 Dose: 25 mg Documented By: KOKI Epinephrine HCl (Epinephrine 1 Mg/Ml) 0.3 mg IM NOW ONE Stop: 10/28/22 13:21 Last Admin: 10/28/22 14:04 Dose: Not Given Documented By: KOKI Famotidine (Famotidine 20 Mg/2 Ml Vial) 20 mg IV NOW JERI Last Admin: 10/28/22 13:31 Dose: 20 mg Documented By: KOKI Sodium Chloride (Normal Saline 0.9%) 1,000 mls @ 1,000 mls/hr IV BOLUS ONE Stop: 10/28/22 14:08 Last Infusion: 10/28/22 14:53 Dose: 0 mls/hr Documented By: Admin: 10/28/22 13:30 Dose: 1,000 mls/hr Documented By: KOKI Methylprednisolone (Methylprednisolone 125 Mg/2 Ml Vial) 125 mg IV NOW ONE Stop: 10/28/22 13:10 Last Admin: 10/28/22 13:33 Dose: 125 mg Documented By: KOKI Metronidazole (Metronidazole 500 Mg Tablet) 500 mg PO NOW ONE Stop: 10/28/22 13:32 Last Admin: 10/28/22 13:39 Dose: 500 mg Documented By: KOKI Vital Signs Vital signs: Vital Signs - 8 hr 10/28/22 12:19 10/28/22 14:55 Temperature 98.1 F Pulse Rate 67 61 Respiratory Rate 18 16 Blood Pressure 125/55 L 124/51 L Pulse Oximetry 97 99 Oxygen Delivery Method Room Air Room Air <Braxton Lassiter DO - Last Filed: 10/28/22 15:36> Orders Ordered: Discontinued Medications Cefdinir (Cefdinir 300 Mg Capsule) 300 mg PO NOW ONE Stop: 10/28/22 13:31 Last Admin: 10/28/22 13:39 Dose: 300 mg Documented By: KOKI Diphenhydramine HCl (Diphenhydramine 50 Mg/Ml Vial) 25 mg IV NOW ONE Stop: 10/28/22 13:10 Last Admin: 10/28/22 13:32 Dose: 25 mg Documented By: KOKI Epinephrine HCl (Epinephrine 1 Mg/Ml) 0.3 mg IM NOW ONE Stop: 10/28/22 13:21 Last Admin: 10/28/22 14:04 Dose: Not Given Documented By: KOKI Famotidine (Famotidine 20 Mg/2 Ml Vial) 20 mg IV NOW JERI Last Admin: 10/28/22 13:31 Dose: 20 mg Documented By: KOKI Sodium Chloride (Normal Saline 0.9%) 1,000 mls @ 1,000 mls/hr IV BOLUS ONE Stop: 10/28/22 14:08 Last Infusion: 10/28/22 14:53 Dose: 0 mls/hr Documented By: Admin: 10/28/22 13:30 Dose: 1,000 mls/hr Documented By: KOKI Methylprednisolone (Methylprednisolone 125 Mg/2 Ml Vial) 125 mg IV NOW ONE Stop: 10/28/22 13:10 Last Admin: 10/28/22 13:33 Dose: 125 mg Documented By: KOKI Metronidazole (Metronidazole 500 Mg Tablet) 500 mg PO NOW ONE Stop: 10/28/22 13:32 Last Admin: 10/28/22 13:39 Dose: 500 mg Documented By: KOKI Vital Signs Vital signs: Vital Signs - 8 hr 10/28/22 12:19 10/28/22 14:55 Temperature 98.1 F Pulse Rate 67 61 Respiratory Rate 18 16 Blood Pressure 125/55 L 124/51 L Pulse Oximetry 97 99 Oxygen Delivery Method Room Air Room Air MDM - Allergic Reaction <ROMAINE Osborn - Last Filed: 10/28/22 15:21> Lab Data Labs: Urine Dip Bedside Urine Glucose Negative Bedside Urine Bilirubin - Negative Bedside Urine Ketone - Negative Urine Specific [place] 1.005 Bedside Urine Occult Blood - Negative Bedside Urine pH 6.0 Bedside Urine Protein - Negative Bedside Urine Urobilinogen - Negative Bedside Urine Nitrite - Negative Bedside Urine Leukocytes - Negative Esterase MDM Narrative Medical decision making narrative: Chief Complaint: Itchy rash from antibiotic Independent historian: Patient Multiple etiologies for patient's symptoms considered including, but not limited to: Contact dermatitis, drug eruption, allergic reaction secondary to erythromycin and clindamycin since patient has history of allergy to vancomycin, Atopic dermatitis, SJS, TEN I have independently reviewed the patient's vital signs and nursing notes as well as prior records if available. My interpretation of lab studies: Urine dip is negative for abnormality Course of care: Patient's symptoms today are consistent with a allergic reaction secondary to taking erythromycin and clindamycin yesterday for a dental infection. She has history of allergy to vancomycin, azithromycin, reported history penicillin with unknown reaction, and now clindamycin is listed as allergy. She was without symptoms of anaphylaxis but endorses having a scratchy throat. She was nontoxic appearing, without shortness of breath or difficulty breathing. Considered IM epinephrine but patient does not have symptoms of bronchospasm or anaphylaxis. She has symptomatic urticaria, for this she was treated with 1 L of IV fluid for dehydration she has reportedly been drinking plenty of water but feels very dry. Methylprednisolone, Pepcid, cefdinir and Flagyl for dental infection. Patient understands to follow-up with her dentist on the as scheduled and will avoid any further doses of the clindamycin and erythromycin. She was prescribed hydroxyzine, a Medrol Dosepak, cefdinir, Flagyl, Zyrtec, and famotidine. She was educated that it may take a few weeks for her rash to improve but it should start to slowly today. Social considerations that may affect disposition: none Questions are addressed and there is agreement with the plan and for follow-up. I consulted with the ED attending physician Dr. Lassiter as needed for higher level of care considerations and they were available for discussion and recommendations regarding plan of care and diagnostic testing. Patient is appropriate for outpatient management. <Braxton Lassiter, DO - Last Filed: 10/28/22 15:36> Lab Data Labs: Urine Dip Bedside Urine Glucose Negative Bedside Urine Bilirubin - Negative Bedside Urine Ketone - Negative Urine Specific [place] 1.005 Bedside Urine Occult Blood - Negative Bedside Urine pH 6.0 Bedside Urine Protein - Negative Bedside Urine Urobilinogen - Negative Bedside Urine Nitrite - Negative Bedside Urine Leukocytes - Negative Esterase Discharge Plan Departure Patient Disposition: Home Clinical Impression: Urticaria Allergic reaction Qualifiers: Encounter type: initial encounter Qualified Code(s): T78.40XA - Allergy, unspecified, initial encounter Instructions: DI for Hives, DI for Adverse Drug Reaction -- Allergic Activity Restrictions/Additional Instructions: *You have been diagnosed with an allergic reaction with rash from your medications. For dental infection, inappropriate non penicillin medication is cefdinir with Flagyl. Typically this is continued for 7-14 days. Since you have follow-up scheduled on the , we will give you 14 days of this medication so that you do not have return of this infection. Please take all medications with water, I hope you start feeling better soon and I am sorry for your symptoms. For itching during the daytime you can take hydroxyzine. Please avoid all vancomycin, clindamycin, and erythromycins. *What to do: *Please continue to take your regular medications as directed. [x] New medication prescriptions sent to your pharmacy: [[facility] ] [ ] New medication written as a paper prescription [ ] No new medications given *Please call and schedule follow up with your primary care provider in 2-3 days, at least for an update. Let them know you were seen in the Emergency Department for the above problem. We will electronically transmit a record of today's note if your PCP or specialist is in our system. *If you do not have a primary care provider please contact [phone] to establish care with one of the [facility] primary care providers. *Return to the Emergency Department for worsening symptoms, inability to keep liquids down, fever greater than 101F, chills, or other concerning symptom. Prescriptions: New cefdinir 300 mg capsule 300 mg PO BID 14 Days Qty: 28 0RF metronidazole 500 mg tablet 500 mg PO BID 14 Days Qty: 28 0RF methylprednisolone [Medrol (Alexis)] 4 mg tablets,dose pack See Rx Instructions .ROUTE .COMPLEX Qty: 21 0RF Rx Instructions: orally per package directions famotidine [Pepcid] 20 mg tablet 20 mg PO DAILY Qty: 20 0RF hydroxyzine HCl 25 mg tablet 25 mg PO BID PRN (Reason: itching) Qty: 30 0RF cetirizine 10 mg tablet 10 mg PO DAILY PRN (Reason: allergy symptoms) Qty: 20 0RF No Action gabapentin 300 mg capsule See Rx Instructions .ROUTE .COMPLEX Qty: 210 11RF Dose Instruction: take 2 capsules by mouth every morning then take 2 capsules EVERY AFTERNOON then take 3 capsules every evening Rx Instructions: take 2 capsules by mouth every morning then take 2 capsules EVERY AFTERNOON then take 3 capsules every evening (DME) diabled parking permit See Rx Instructions .Route .MEDSUPPLY Qty: 1 0RF Rx Instructions: Valid for 5 years sertraline 100 mg tablet See Rx Instructions .ROUTE .COMPLEX Qty: 180 3RF Dose Instruction: take 1 tablet by mouth twice a day Rx Instructions: take 1 tablet by mouth twice a day amlodipine 5 mg tablet See Rx Instructions .ROUTE .COMPLEX Qty: 90 3RF Dose Instruction: take 1 tablet by mouth once daily Rx Instructions: take 1 tablet by mouth once daily montelukast 10 mg tablet See Rx Instructions .ROUTE .COMPLEX Qty: 90 0RF Dose Instruction: take 1 tablet by mouth at bedtime Rx Instructions: take 1 tablet by mouth at bedtime dexlansoprazole 30 mg capsule,biphase delayed releas 30 mg PO DAILY simvastatin 40 mg tablet 40 mg PO BEDTIME Qty: 90 0RF PreserVision AREDS-2 [id number] mq-hjuj-es-mg capsule 1 tab PO DAILY vitamin B complex [B Complex-Vitamin B12] tablet 1 tab PO DAILY Referrals: Steven Pettit DO [Primary Care Provider] - Stand Alone Forms: Patient Portal/API <Braxton Lassiter DO - Last Filed: 10/28/22 15:36> Cosign ED Attending Cosignature Attestation: Dr Lassiter Co-Sign Statement: I was available for consultation during this patient's emergency department visit. This chart is signed by myself for administrative purposes only. I did not have direct contact with this patient during this visit. They were seen independently by the APC.
[2022-10-28] MEDS: SODIUM CHLORIDE 0.9% 1,000 ML 1000 ML IV (13:30)
[2022-10-28] MEDS: FAMOTIDINE 20 MG/2 ML VIAL IV (13:31)
[2022-10-28] MEDS: diphenhydrAMINE 50 MG/ML VIAL 25 MG IV (13:32)
[2022-10-28] MEDS: methylPREDNISolone 125 MG/2 ML VIAL IV (13:33)
[2022-10-28] MEDS: metroNIDAZOLE 500 MG TABLET PO (13:39)
[2022-10-28] MEDS: CEFDINIR 300 MG CAPSULE PO (13:39)
[2022-10-28 14:55] VITALS: BP 124/51; PULSE 61; RESP 16; O2SAT 99
== END 2022-10-28 14:56 | disposition home or self-care (01) ==
PROVIDERS: Emergency Provider Nurse Practitioner Critical Care Medicine; PCP Family Medicine
DX: L50.9 Urticaria, unspecified (principal); T78.40XA Allergy, unspecified, initial encounter
CPT/HCPCS: 36415; 81003; 96361; 96374; 96375; 99284; J1200; J2930

== ENCOUNTER → 2023-03-07 13:27 | Outpatient (CLI) | payer MEDICARE, BC, SELFPAY ==
--- NOTE | 2023-03-07 13:28 | DI.RAD.S_ITS ---
PROCEDURE: XR ELBOW LT MIN 3V INDICATIONS: sharp stabbing pain to bone/elbow TECHNIQUE: 3 views of the elbow were acquired. COMPARISON: None. FINDINGS: Bones: No fractures or dislocations. No suspicious bony lesions. Soft tissues: No elbow joint effusion. No suspicious soft tissue calcifications. IMPRESSION: No osseous lesion. If symptoms and/or clinical suspicion for pathology persists, further assessment with advanced imaging (e.g. CT, MRI or bone scan) should be considered. Dictated by: Charisse Tierney MD, PhD on 03/07/2023 at 13:54 Approved by: Charisse Tierney MD, PhD on 03/07/2023 at 13:54
== END ==
PROVIDERS: PCP Family Medicine; Referring Provider Physician Assistant; Visit Provider Physician Assistant
DX: M25.522 Pain in left elbow (principal)
CPT/HCPCS: 73080

== ENCOUNTER → 2023-12-01 11:19 | Outpatient (CLI) | payer MEDICARE, BC, SELFPAY ==
--- NOTE | 2023-12-01 11:21 | DI.MG.S_ITS ---
BILATERAL DIGITAL SCREENING MAMMOGRAM 3D/2D WITH CAD: 12/01/2023 CLINICAL: Routine screening. Comparison is made to exams dated: 05/04/2022 mammogram, 04/06/2019 mammogram, and 10/03/2017 mammogram - [facility]. Both breasts are heterogeneously dense, which may obscure small masses (category c / 51-75% glandular tissue). Current study was also evaluated with a Computer Aided Detection (CAD) system. No significant masses, calcifications, or other findings are seen in either breast. There has been no significant interval change. IMPRESSION: NEGATIVE There is no mammographic evidence of malignancy. A 1 year screening mammogram is recommended. Based on the Tyrer Cuzick model (a risk assessment model) the patient's lifetime risk is 9.9% and her 10 year risk is 4.6%. According to the ACR, ACS, and NCCN guidelines, an annual breast MRI exam along with mammogram is recommended if the patient's lifetime risk is 20% or greater. This exam was interpreted at Station ID: [id number]. NOTE: For mammograms, a report in lay terms will be sent to the patient. Approximately 15% of breast malignancies will not be visualized mammographically. In the management of a palpable breast mass, a negative mammogram must not discourage biopsy of a clinically suspicious lesion. Electronically Signed By: Alondra Schuler M.D., Ph.D. bennett/lucille:12/01/2023 14:30:41 letter sent: Normal Exam ACR BI-RADS Category 1: Negative [id number]
== END ==
LOC: MAMMO 11:20
PROVIDERS: PCP Family Medicine
DX: Z12.31 Encounter for screening mammogram for malignant neoplasm of breast (principal); R92.333 Mammographic heterogeneous density, bilateral breasts
CPT/HCPCS: 77063; 77067